=== PATIENT | female | born 1960 | race Caucasian/White ===

== ENCOUNTER → 2023-10-18 16:25 | Outpatient (REF) | payer OTHER, SELFPAY | LOC: PAVMRI 16:25 | PROVIDERS: ATTENDING PHYSICIAN Physician Assistant Surgical; FAMILY PHYSICIAN Internal Medicine | DX: M76.892 Other specified enthesopathies of left lower limb, excluding foot (principal); M25.552 Pain in left hip; M70.61 Trochanteric bursitis, right hip; M25.551 Pain in right hip | CPT/HCPCS: 73721 ==

== ENCOUNTER 2024-09-01 17:24 | Emergency (ER) | payer OTHER, SELFPAY ==
[2024-09-01 17:32] VITALS: BP 179/91
[2024-09-01 17:55] LABS: % Basophils 0.3 % (0-2); % Eosinophils 1.7 % (0-6); % Immature Granulocytes 0.4 % (0-0.5); % Lymphocytes 13.3 % (20.5-51.1); % Monocytes 7.1 % (1.7-9.3); % Neutrophils 77.2 % (42.2-75.2); Absolute Eosinophils 0.2 10^3/uL (0-0.7); Absolute Lymphocytes 1.4 10^3/uL (1.2-3.4); Absolute Monocytes 0.7 10^3/uL (0.1-0.6); Absolute Neutrophils 7.9 10^3/uL (1.4-6.5); Hematocrit 41.8 % (37.0-47.0); Hemoglobin 14.2 g/dL (12.0-16.0); Mean Corpuscular Hgb 30.6 pg (27.0-31.0); Mean Corpuscular Volume 90.1 fL (81.0-99.0); Mean Platelet Volume 9.3 fL (7.4-10.4); Nucleated Red Blood Cells % 0 %; Platelet Count 233 10^3/uL (130-400); Red Blood Cell Count 4.64 10^6/uL (4.20-5.40); Red Cell Dist. Width 12.8 % (11.5-14.5); White Blood Cell Count 10.3 10^3/uL (4.8-10.8)
[2024-09-01 18:07] LABS: Blood Urea Nitrogen 16 mg/dl (7-17); Calcium 9.7 mg/dl (8.4-10.2); Carbon Dioxide 25 mmol/L (22-30); Chloride 100 mmol/L (98-107); Glucose 98 mg/dl (70-99); Sodium 135 mmol/L (135-145); eGFR > 60.00
[2024-09-01 18:19] LABS: Troponin I < 0.012 ng/ml
[2024-09-01 18:45] LABS: TSH Reflex To Free T4 2.78 uIU/ml (0.47-4.68)
[2024-09-01 19:37] LABS: Lipase 96 U/L (23-300)
[2024-09-01 19:39] VITALS: BMI 30.8
[2024-09-01 19:40] VITALS: BP 148/78
--- NOTE | 2024-09-01 19:40 | ED.GENMED ---
History of Present Illness
General
Chief Complaint: Blood Pressure Problem
Source: patient
Exam Limitations: none
Time Seen by Provider: 09/01/24 19:26
History of Present Illness
History of Present Illness:
See MDM
Past History
Past History
ED Past Medical History: Other (ADHD)
ED Past Surgical History: Tonsilectomy
Social History
Tobacco: Non-smoker
Alcohol: None
Phy Exam
Physical Exam
Physical Exam:
See MDM
Course
Orders/Labs/Results
Orders:
Orders
09/01/24 17:25
Electrocardiogram (*1) Urgent
Reason for Study: Hypertension, Benign
09/01/24 17:26
EKG- Treatment ONCE
09/01/24 17:44
Basic Metabolic Panel Urgent
Complete Blood Count/With Diff Urgent
Lipase Urgent
Comment: ADDON
TSH Reflex To Free T4 Urgent
Troponin I Urgent
09/01/24 19:05
Add On- LAB Urgent
Tests Added?: lipase
09/01/24 19:39
Amlodipine [Norvasc] 5 mg PO ONCE ONE
Abdomen Xray - 1 View [CR Abdomen - 1 View] Urgent
Comment:
Reason For Exam: upper abd pain
CR Chest - 2 Views Urgent
Comment:
Reason For Exam: central chest pain
Abnormal Lab Results
09/01/24
17:44
Absolute Neuts (auto) 7.9 H 10^3/uL
(1.4-6.5)
Absolute Monos (auto) 0.7 H 10^3/uL
(0.1-0.6)
Neutrophils % 77.2 H %
(42.2-75.2)
Lymphocytes % 13.3 L %
(20.5-51.1)
09/01/24 17:44
09/01/24 17:44
Vital Signs
Initial and Last Documented VS:
Initial Vital Signs
Temp Pulse Resp BP Pulse Ox
98.1 F 76 20 179/91 99
09/01/24 17:32 09/01/24 17:32 09/01/24 17:32 09/01/24 17:32 09/01/24 17:32
Last Documented Vital Signs
Temp Pulse Resp BP Pulse Ox
98.3 F 72 21 147/75 95
09/01/24 19:40 09/01/24 20:45 09/01/24 20:45 09/01/24 20:08 09/01/24 20:45
MDM/Problems Addressed
Differential Diagnosis Includes:
HPI and MDM Narrative:
63-year-old female presenting for evaluation of vague central chest discomfort. She noted it yesterday morning. She took her blood pressure and was elevated. Patient got concerned because it occurred when she woke up again. It has been
relatively constant but not worse with exertion. She called her PCP and was instructed to go to the hospital. Patient was more concerned about her elevated blood pressure. She and her doctor have been evaluating her blood pressure and they are
considering starting antihypertensives. Blood work was done prior to my evaluation. No evidence of endorgan damage. EKG is nonischemic and troponin negative. Given duration of symptoms, doubt ACS
Symptoms are not better when she leans forward
Given the central chest discomfort, will obtain chest x-ray. She has no leg swelling or tenderness or any evidence of tachycardia or hypoxia. We discussed low concern for PE. Patient agrees.
Given that her blood pressure is continuingly increasing, will start low-dose amlodipine with the thought of she and her doctor reevaluating her symptoms and blood pressure
Physical exam
General: Well appearing and non-toxic
HEENT: protecting airway
Neck: appears supple
CV: No evidence of cyanosis. Regular rate and rhythm. Mild tenderness to palpation of xiphoid process
Resp: No accessory muscle use. Lungs clear
Abd: Non-distended. No significant tenderness
Extremities: No deformities
Neuro: alert
Psych: Normal affect
Skin: Intact
Problems Addressed including Acute and Chronic Conditions affecting care:
1. Chest discomfort
Acuity: acute
Prognosis: stable
Details: Given duration of symptoms with nonischemic EKG and negative troponin, doubt ACS. Will obtain chest X
2. Mild upper abdominal discomfort
Acuity: acute
Prognosis: stable
Details: Will obtain x-ray to rule out any evidence of constipation. LFTs and lipase negative
Updates
Chest x-ray clear. We discussed moderate stool in the ascending colon. Discussed MiraLAX and amlodipine and follow-up with PCP. Patient comfortable with plan
Differential Diagnosis (but not limited to): Noncardiac chest pain, constipation, gastritis
Testing considered: Second troponin but doubt ACS given duration of symptoms with negative troponin
Drug therapy (if applicable): OTC meds, please see d/c instruction regarding Rx drugs
Amount and/or Complexity of Data Reviewed
Clinical info obtained from: Patient
External data reviewed: N/A
Labs I independently reviewed (but not limited to): Troponin LFTs normal
Radiology: X-ray independently reviewed: Chest x-ray clear and mild constipation seen in ascending colon
Pulse Ox: not hypoxic
EKG independently reviewed: Sinus rhythm, left axis, no STEMI
Paramedic Supervisor: Sinus rhythm
Critical Care: N/A
Risk of Complication:
Social Determinants of health: Good social support
Discussed with other providers: N/A
Escalation of Care includes Admit/Obs: After being observed in the Emergency Department, pt stable for discharge.
Occasional wrong word or 'sound a like' substitutions may have occurred due to the inherent limitations of voice recognition software. Read the chart carefully and recognize, using context, where substitutions have occurred.
*Critical Care Note
Total Time (30-74mins, 75-104mins- exclusive of procedures): Not Applicable
ED Attending Note
-
Portions of this chart may have been created with voice recognition software.� Occasional wrong word or��sound alike� substitutions may have occurred due to the inherent limitations of voice recognition software.
Discharge Plan
Departure
Patient Disposition: Home (Routine Discharge)
Date of Disposition: 09/01/24
Time of Disposition: 21:01
Patient with high blood pressure during this ER visit?: Yes
Discharge Problem:
HTN (hypertension), Chest pain
Instructions: BLOOD PRESSURE
Prescriptions:
New
amlodipine 5 mg tablet
5 mg PO DAILY Qty: 14 0RF
Referrals:
Carla Ferraro MD [Family Provider] -
Activity Restrictions/Additional Instructions:
Please return for any worsening symptoms.
You may return at any time if you have further concerns.
Please follow up with your doctor at the first available appointment, preferably this week. Please discuss your ongoing discomfort and your elevated blood pressure.
As we discussed, you would benefit from a laxative for the next day or two.
Thank you for choosing [facility].
Interventions
Interventions:
*Risk Screen - Suicide Last Done: 09/01/24 19:39
*General Assessment Last Done: 09/01/24 19:39
*Neglect/Abuse Screening Last Done: 09/01/24 19:39
*ED COVID-19 Vaccine History Last Done: 09/01/24 19:39
ED- Cardiac Assessment Last Done: 09/01/24 19:43
ED- Neurological Assessment Last Done: 09/01/24 19:43
ED- Pulmonary Assessment Last Done: 09/01/24 19:43
Discharge Date and Time
Print Language: TOGOLESE
[2024-09-01] MEDS: NORVASC 5 MG PO (19:50)
[2024-09-01 20:08] VITALS: BP 147/75
[2024-09-01 21:00] VITALS: BP 147/84
== END 2024-09-01 21:12 | disposition home or self-care (01) ==
LOC: EMR 17:24
PROVIDERS: Emergency Medicine; EMERGENCY PHYSICIAN Student in an Organized Health Care Education/Training Program; FAMILY PHYSICIAN Internal Medicine
DX: R07.89 Other chest pain (principal); I10 Essential (primary) hypertension
CPT/HCPCS: 99285; 71046; 74018; 80048; 83690; 84443; 84484; 85025; 93005

== ENCOUNTER → 2024-09-29 08:17 | Outpatient (REF) | payer OTHER, SELFPAY | LOC: HWRAD 08:17 | PROVIDERS: ATTENDING PHYSICIAN Nurse Practitioner Family; FAMILY PHYSICIAN Internal Medicine | DX: N95.8 Other specified menopausal and perimenopausal disorders (principal) | CPT/HCPCS: 76830; 76856 ==

== ENCOUNTER → 2024-11-13 12:01 | Outpatient (REF) | payer OTHER, SELFPAY ==
[2024-11-13 13:58] LABS: Blood Urea Nitrogen 18 mg/dl (7-17); Calcium 9.7 mg/dl (8.4-10.2); Carbon Dioxide 28 mmol/L (22-30); Chloride 105 mmol/L (98-107); Glucose 114 mg/dl (70-99); Potassium 4.3 mmol/L (3.5-5.1); Sodium 140 mmol/L (135-145); eGFR > 60.00
== END ==
LOC: REG 12:01
PROVIDERS: ATTENDING PHYSICIAN Internal Medicine; FAMILY PHYSICIAN Internal Medicine
DX: R10.9 Unspecified abdominal pain (principal)
CPT/HCPCS: 36415; 80048

== ENCOUNTER → 2024-11-15 08:38 | Outpatient (REF) | payer OTHER, SELFPAY | LOC: RAD 08:38 | PROVIDERS: ATTENDING PHYSICIAN Internal Medicine | DX: R10.9 Unspecified abdominal pain (principal) | CPT/HCPCS: 74177; Q9967 ==